=== PATIENT | female | born 1970 ===

== ENCOUNTER 2025-03-06 17:45 | Emergency (ER) | payer OTHER ==
[~2025-03-06] VITALS: Ht 170.2 cm; Wt 68.2 kg
--- NOTE | 2025-03-06 18:38 | RADIOLOGY REPORT ---
CLINICAL INDICATION: Shoulder Pain LEFT TECHNIQUE: 2 radiographic views of the left shoulder were obtained. Comparison: None FINDINGS/IMPRESSION: There is acute mildly displaced fracture of the greater tuberosity with associated soft tissue edema. Limited evaluation for dislocation given only external rotation views. Of the visualized lungs are c lear.
[2025-03-06] MEDS: HYDROcodone/acetaminophen 10/325mg tab PO ONE (18:50)
--- NOTE | 2025-03-06 18:59 | Physician Documentation ---
History of Present Illness ~ Chief Complaint: Shoulder pain Stated Complaint: FALL Time Seen by MD: 18:31 OK to notify your PCP?: Yes Source: patient, RN/MD, RN notes reviewed Exam Limitations: no limitations, intoxication HPI This patient was drinking she is intoxicated quite demanding in the ER. She apparently fell landing on her left shoulder. It is painful she is asking for pain medications. She denies any other complaints such as fevers chills chest pain or shortness of breath no other injuries were reported. She states something is wrong with my shoulder. Pain is worse with movement, she is in a sling Tetanus within 5 years?: No Medication Reconciliation Allergies: Coded Allergies: Sulfa (Sulfonamide Antibiotics) (Verified Allergy, Unknown, 03/06/25) Past Medical History Past Medical History: No Pertinent History Past Surgical History: no surgical history Alcohol Use: Heavy Review of Systems ROS Limited review of systems patient is intoxicated argumentative Physical Exam Vital Signs: RN Vital Signs have been reviewed: Yes, Temperature: 97.8, Source: Temporal, Heart Rate: 66, Respiratory Rate: 18, BP: 112/70, Pulse Oximetry: 98, Weight: 68.180 Physical Exam General: The patient is well developed, well nourished, nontoxic appearing and is in mild acute distress. Anxious, angry, tearful, intoxicated Skin: [place], warm and dry with no rashes. HEENT: Head was normocephalic and atraumatic. Eyes - pupils equal, round, reactive to light and accommodation. Extraocular movements were intact. Conjunctivae were nonicteric blood shot injected. moist mucous membranes. Neck: Supple and nontender. There was no jugular venous distention, Chest: Clear to auscultation bilaterally without wheezes, rales or rhonchi. No accessory muscle use. Heart: Rate regular and rhythmic. Abdomen: Soft, nontender and nondistended. Extremities: No cyanosis, clubbing or edema. The patient moves all extremities. Pulses were equal and symmetric. Left upper extremity in a sling decreased range of motion secondary to pain Neurologic: Motor sensory grossly intact Psychologic: The patient was oriented to person, place and time. The patient demonstrated appropriate judgement and insight. Progress Results/Orders Reviewed/noted all lab results: Yes Results/Orders Completed Orders - PATRICIA PATEL MD Hydrocodone/[place] 10/325 ([place] 10/325mg (03/06/25 18:50) Medications Received in ER Medications (Trade) Dose Ordered Sig/Flakita Route PRN Reason Start Time Stop Time Status Last Admin Dose Admin ([place] 10/325mg tab) 1 tab ONCE ONCE PO 03/06/25 18:50 03/06/25 18:51 DC 03/06/25 18:50 1 TAB Vital Signs 03/06/25 03/06/25 17:54 19:29 Temp 97.8 97.8 Pulse 66 78 Resp 18 18 B/P (MAP) 112/70 128/74 Pulse Ox 98 98 Re-Evaluation Re-Evaluation : Re-Evaluation: Improved Progress Patient was seen and examined. The patient was having some pain left shoulder pain. She is intoxicated very demanding. In fact every time I walked into the room she stated she wanted to see a doctor and I had to inform her each time that I was her doctor. I gave her pain medications she was angry that I was not giving her more. I explained to the patient that I was waiting for the x-ray results but it appeared broken. I left a copy of in her room she was resting when I came in a 3rd time. However patient left AMA and did not take the official read. I was unable to give her follow up instructions no discharge medications no referral was provided for her fracture. Fortunately she was already in his sling and there was no additional treatment needed other than pain management. EKG/XRAY/CT/US/VASC/MRI Bone/Soft Tissue X-Ray (Ext.) : Interpreted By: self, radiologist, both Additional Comment CLINICAL INDICATION: Shoulder Pain LEFT TECHNIQUE: 2 radiographic views of the left shoulder were obtained. Comparison: None FINDINGS/IMPRESSION: There is acute mildly displaced fracture of the greater tuberosity with associated soft tissue edema. Limited evaluation for dislocation given only external rotation views. Of the visualized lungs are clear. Medical Decision Making Differential Dx:Considerations: Include: AC separation, Adhesive capsulitis, arthritis, Cervical disc disease, Contusion, Dislocation, Fracture: Humerus, Fracture: Clavicle, Rotator cuff injury, SC dislocation, Sprain, other Departure Disposition: 01 HOME / SELF CARE / HOMELESS Impression: Primary Impression: Fracture of humerus Qualified Codes: S42.255A - Nondisplaced fracture of greater tuberosity of left humerus, initial encounter for closed fracture Additional Impression: Alcohol intoxication Qualified Codes: F10.920 - Alcohol use, unspecified with intoxication, uncomplicated Condition: Stable Discharge Instructions: Shoulder Fracture Referrals: NO PRIMARY CARE PROVIDER (PCP) Education Educated: Patient Educated regarding: diagnosis Signature Scribe Signature: No scribed Attestation: The note accurately reflects work and decisions made by me.Patricia Patel MD 03/06/25 21:21 PATRICIA PATEL MD Mar 06, 2025 18:59
[2025-03-06 19:29] VITALS: BP 128/74; PULSE 78; RESP 18; TEMP 97.8; O2SAT 98
== END 2025-03-06 19:29 | disposition left against medical advice (07) ==
LOC: ER 17:45
DX: S42.252A Displaced fracture of greater tuberosity of left humerus, initial encounter for closed fracture (principal); F10.129 Alcohol abuse with intoxication, unspecified; Z88.2 Allergy status to sulfonamides; Y90.9 Presence of alcohol in blood, level not specified; W18.39XA Other fall on same level, initial encounter; Y93.89 Activity, other specified; Y92.89 Other specified places as the place of occurrence of the external cause; Y99.8 Other external cause status
CPT/HCPCS: 73030; 99283